=== PATIENT | male | born 1980 ===

== ENCOUNTER 2018-01-05 15:16 | Emergency (ER) | payer BC ==
[2018-01-05 15:31] VITALS: BP 146/79; PULSE 99; RESP 16; TEMP 97.1; O2SAT 99
== END 2018-01-05 16:00 | disposition left against medical advice (07) ==
LOC: H.ER 15:16
DX: Z02.89 Encounter for other administrative examinations (principal)

== ENCOUNTER 2018-01-05 16:38 | Emergency (ER) | payer BC ==
[2018-01-05 16:52] VITALS: BP 137/88; PULSE 100; RESP 16; TEMP 98.8; O2SAT 99
[2018-01-05 18:02] LABS: ALB/GLOB RATIO 1.2 (1.0-2.1); ALBUMIN 4.8 g/dL (3.5-5.0); ALT/SGPT 37 U/L (21-72); AST/SGOT 27 U/L (17-59); BLOOD UREA NITROGEN 11 mg/dl (9-20); CALCIUM 9.8 mg/dL (8.4-10.2); GFR AFRICAN-AMERICAN > 60; GFR NON-AFRICAN AMERICAN > 60
--- NOTE | 2018-01-05 18:47 | ED PDOC ---
HPI: General Adult Time Seen by Provider: 01/05/18 16:44 Chief Complaint (Nursing): Medical Clearance Chief Complaint (Provider): HIV prophylaxis History Per: Patient History/Exam Limitations: no limitations Additional Complaint(s): 37 yo male with no known medical problems presents for treatment/prevention of HIV infection. PT states he has been in a relationship for 8 months with a female, using condoms. PT states last night they did not use condoms and afterwards he saw medications on her dresser. Pt states he looked up the medications and found they were for HIV. PT confronted female and she said not to worry because her HIV is under control. Past Medical History Reviewed: Historical Data, Nursing Documentation, Vital Signs Vital Signs: Last Vital Signs Temp 98.8 F 01/05/18 16:51 Pulse 100 H 01/05/18 16:51 Resp 16 01/05/18 16:51 BP 137/88 01/05/18 16:51 Pulse Ox 99 01/05/18 18:47 - Medical History PMH: No Chronic Diseases - Surgical History Surgical History: Cholecystectomy - Family History Family History: States: Unknown Family Hx - Living Arrangements Living Arrangements: With Family - Social History Current smoker - smoking cessation education provided: No - Home Medications Home Medications: Ambulatory Orders Medication Instructions Recorded DiphenhydrAMINE [Benadryl] 50 mg PO BID PRN #15 cap 08/01/16 Epinephrine HCl [Epipen 0.3 mg MR PRN PRN #1 unit 08/01/16 Auto-Injector] Loratadine [Claritin] 10 mg PO DAILY #10 tab 08/01/16 predniSONE [predniSONE Tab] 60 mg PO DAILY #9 tab 08/01/16 Emtricitabine/Tenofovir (Tdf) 1 each PO DAILY #28 tablet 01/05/18 [Truvada 200 mg-300 mg Tablet] Tenofovir [Viread] 300 mg PO DAILY #28 tab 01/05/18 - Allergies Allergies/Adverse Reactions: Allergies Allergy/AdvReac Type Severity Reaction Status Date / Time soy de leon Allergy SHORTNESS Uncoded 08/01/16 18:26 OF BREATH Review of Systems ROS Statement: Except As Marked, All Systems Reviewed And Found Negative Constitutional: Negative for: Fever, Chills Gastrointestinal: Negative for: Abdominal Pain Genitourinary Male: Negative for: Dysuria, Frequency, Penile Pain Physical Exam - Reviewed Nursing Documentation Reviewed: Yes Vital Signs Reviewed: Yes - Physical Exam Appears: Positive for: Well, Non-toxic, No Acute Distress Head Exam: Positive for: ATRAUMATIC, NORMAL INSPECTION, NORMOCEPHALIC Skin: Positive for: Normal Color, Warm, DRY Eye Exam: Positive for: Normal appearance ENT: Positive for: Normal ENT Inspection Neck: Positive for: Normal, Painless ROM Respiratory: Negative for: Accessory Muscle Use, Respiratory Distress Back: Positive for: Normal Inspection Extremity: Positive for: Normal ROM Neurologic/Psych: Positive for: Alert, Oriented - Laboratory Results Result Diagrams: 01/05/18 17:41 - ECG O2 Sat by Pulse Oximetry: 99 Medical Decision Making Medical Decision Making: Discussed treatment and side effects with patient. Disposition - Clinical Impression Clinical Impression: Need for prophylaxis against sexually transmitted diseases - Patient ED Disposition Is Patient to be Admitted: No - Disposition Disposition: Routine/Home Disposition Time: 18:45 Condition: STABLE Prescriptions: Emtricitabine/Tenofovir (Tdf) [Truvada 200 mg-300 mg Tablet] 1 each PO DAILY # 28 tablet Tenofovir [Viread] 300 mg PO DAILY #28 tab Forms: [employer] (Bahamian) Print Language: CENTRAL AFRICAN
== END 2018-01-05 18:52 | disposition home or self-care (01) ==
LOC: H.ER 16:38
DX: Z11.3 Encounter for screening for infections with a predominantly sexual mode of transmission (principal)